=== PATIENT | male | born 1975 | race Caucasian/White ===

== ENCOUNTER 2021-07-22 10:52 | Observation (INO) | payer OTHER, SELFPAY ==
[2021-07-22] VITALS (9 sets, daily range): BP systolic 132–164; BP diastolic 69–89; PULSE 62–77; RESP 17–18; TEMP 36.3–37.2; O2SAT 98–100
--- NOTE | ~2021-07-22 | XR_ITS ---
EXAM: XR abdomen/kub 1V DATE: 07/22/2021 13:11 HISTORY: nephrolithiasis . COMPARISON: CT abdomen and pelvis, same date. FINDINGS: Clear lung bases. Normal bowel gas pattern. No organomegaly. No abnormal abdominal calcifi cation. Right ureteral stone identified in the prior CT is not radiographically visible. Regional bon es and soft tissues normal for age. IMPRESSION: Previously identified right ureteral stone not visualized. Reviewed, dictated and finalized at location K.
--- NOTE | ~2021-07-22 | CT_ITS ---
EXAMINATION: CT abdomen pelvis wo con DATE: 07/22/2021 12:00 INDICATION: Right flank pain. Nausea and vomiting. TECHNIQUE: Computed tomography (CT) of the abdomen and pelvis was performed without intravenous contr ast. The dose-length product was 414.75 mGy-cm. Automated exposure control and iterative reconstruction technique were employed. COMPARISON: None. FINDINGS: Lung bases are unremarkable. Heart size normal. No significant pleural or pericardial effus ion. There is a 4 mm proximal right ureteral stone with mild hydronephrosis. No renal stones. The liver, spleen, pancreas, adrenal glands are unremarkable. Gallbladder is present. Small fat-conta ining umbilical hernia. Nonobstructive bowel gas pattern. Small hiatal hernia. No free air or free fl uid. Nonobstructive bowel gas pattern. No acute osseous abnormality. IMPRESSION: 1. Proximal right ureteral stone measuring 4 mm with mild hydronephrosis. Reviewed, dictated and finalized at location A.
--- NOTE | ~2021-07-22 | XR_ITS ---
XR abdomen/kub 1V DATE: 07/23/2021 05:53 INDICATION: Flank pain TECHNIQUE: AP rejection COMPARISON: 07/22/[address] abdomen pelvis FINDINGS: Faint approximately 4 mm calcific density overlying right EE proximal ureter at upper L4 le david, corresponding to the right ureteral calculus at this location noted on 07/22/2021 CT abdomen pelv is examination. No other urinary tract calcification. The psoas shadows appear intact. No visceromegaly is noted. No evidence of bowel obstruction. IMPRESSION: 4 mm proximal right ureteral calculus at upper L4 level Reviewed, dictated and finalized at Location A. Reviewed, dictated and finalized at location A.
--- NOTE | ~2021-07-22 | XR_ITS ---
EXAMINATION: XR chest 1V portable DATE: 07/23/2021 07:25 INDICATION: Chest pain TECHNIQUE: frontal view of the chest was obtained. COMPARISON: None FINDINGS: The lungs are clear with no focal airspace opacities, pulmonary edema, pleural effusion or pneumothor ax. The cardiomediastinal silhouette is normal. Mild thoracic dextrocurvature with mild spondylosis. IMPRESSION: 1. No acute cardiopulmonary disease. Reviewed, dictated and finalized at location A.
[2021-07-22 11:16] LABS: Basophils Absolute Auto 0.1 K/mm3 (0.0-0.1); Basophils Percent Auto 1.1 % (0.2-1.2); Eosinophils Absolute Auto 0.1 K/mm3 (0-0.3); Eosinophils Percent Auto 1.6 % (0-4.4); Hematocrit 45.4 % (42.0-52.0); Hemoglobin 15.1 g/dL (14.0-18.0); Immature Granulocyte Absolute 0.03 K/mm3 (0.00-0.031); Immature Granulocyte Percent A 0.4 % (0-0.5); Lymphocytes Absolute Auto 3.03 K/mm3 (0.9-3.2); Lymphocytes Percent Auto 36.7 % (18.3-44.2); Mean Corpuscular HGB Conc 33.3 g/dl (32-36); Mean Corpuscular Hemoglobin 31.9 pg (26-34); Mean Platelet Volume 9.2 fl (7.4-10.4); Monocytes Absolute Auto 0.8 K/mm3 (0.1-0.6); Monocytes Percent Auto 9.8 % (2.6-8.5); Neutrophils Absolute Auto 4.2 K/mm3 (1.3-6.7); Neutrophils Percent Auto 50.4 % (45.5-73.1); Platelet Count Result 315 k/mm3 (150-375); Red Blood Count 4.73 M/mm3 (4.6-6.20); Red Cell Distribution Width 12.3 % (11.5-14.5); White Blood Count 8.3 K/mm3 (4.5-10.0)
[2021-07-22] MEDS: MORPHINE SULFATE (*CRX) 4 MG/ML INJ IV PUSH ×3 (11:19→19:28)
[2021-07-22] MEDS: ONDANSETRON INJ 4 MG/2 ML VIAL IV PUSH ×2 (11:19→16:38)
[2021-07-22 11:25] LABS: Alanine Aminotransferase 27 U/L (6-50); Albumin Level 4.6 g/dL (3.5-5.1); Alkaline Phosphatase 59 U/L (38-126); Anion Gap 9 mmol/L (8-16); Aspartate Amino Transferase 32 U/L (17-59); Bilirubin,Total 0.9 mg/dL (0.2-1.3); Blood Urea Nitrogen 17 mg/dL (9-20); Calcium 8.8 mg/dL (8.4-10.2); Carbon Dioxide 27 mmol/L (22-30); Chloride 103 mmol/L (98-107); Estimated CRCL calculation 96 ml/min; Estimated Glomerular Filt Rate > 60; Glucose 129 mg/dL (65-110); Potassium 3.4 mmol/L (3.4-5.0); Sodium 139 mmol/L (137-145)
[2021-07-22 11:31] LABS: Appearance Urine Clear (Clear); Bilirubin Urine 1+ (Negative); Blood Urine 3+ (Negative); Color Urine Yellow (Yellow); Glucose Urine UA Negative (Negative); Ketones Urine Negative (Negative); Leukocyte Esterase Ur Negative LEU/UL (Negative); Nitrate Urine Negative (Negative); Protein Urine 1+ mg/dL (Negative)
[2021-07-22 11:40] LABS: Budding Yeast Urine Present /hpf; Mucus Urine Rare /lpf; WBC Urine 0-3 /hpf
[2021-07-22 11:41] LABS: Add Urine Microscopic? YES
[2021-07-22] MEDS: SODIUM CHLORIDE 0.9% IV 1,000 ML 999 ML IV CONT (12:36)
--- NOTE | 2021-07-22 12:47 | ED.BACK ---
HPI - Back Pain/Injury General Chief Complaint: Back Pain/Injury Stated Complaint: Right Flank Pain Time Seen by Provider: 07/22/21 11:07 History of Present Illness HPI Narrative: Patient is a 45-year-old male here for evaluation of right today. Patient states he was at [employer] when he suddenly developed severe flank pain that is stabbing in nature. The pain is an intermittent in nature, radiates around to his right groin. He began to vomit earlier today, which prompted his emergency department evaluation. He denies any medications prior to arrival. Denies fevers, chills, dysuria, hematuria, history of previous. No history of kidney stones. Related Data Home Medications Medication Instructions Recorded Confirmed No Home Medications 07/22/21 07/22/21 Allergies Allergy/AdvReac Type Severity Reaction Status Date / Time cat dander Allergy Unknown Unknown Verified 07/22/21 14:59 Review of Systems Review of Systems: Gen.: Denies fevers or chills Eyes: Denies eye pain or visual change ENT: Denies congestion Respiratory: Denies shortness of breath or cough CV: Denies chest pain or palpitations GI: Reports nausea and vomiting. Denies diarrhea denies burning, urgency, frequency or hematuria Musculoskeletal: Reports back pain Neuro: Denies numbness, tingling, weakness or focal weakness Skin: Denies rash Except as documented, all other systems reviewed and negative FORMERLY [facility], [facility] Past Medical History Medical History Bulging disc Surgical History Surgical History History of lumbosacral spine surgery Family History Family History (Updated 07/22/21 @ 15:08 by Rufina Gilbert RN) Father Family history of cardiovascular disease Family history of elevated blood lipids Mother Family history of cardiovascular disease Family history of elevated blood lipids Family history of mental disorder Sibling Family history of elevated blood lipids Social History Social History Smoking status: Never smoker Alcohol intake: current Drinks per week: 14 Substance use: never Substance use type: does not use Spiritual care concerns: No Exam Narrative: APPEARANCE: uncomfortable appearing EYES: EOMI HEENT: Normocephalic, atraumatic, OMM RESPIRATORY: No respiratory distress. Clear to auscultation bilaterally with no rhonchi wheezing or rales. CARDIOVASCULAR: Regular rate and rhythm without murmurs rubs or gallops. ABDOMINAL: Soft, nontender, nondistended, no rebound or guarding MUSCULOSKELETAL: No CVA tenderness. Moves all extremities. No clubbing, cyanosis or edema. NEURO: Awake and alert. Following commands, speech normal, no focal deficits SKIN: Warm, dry. No rashes lesions or abrasions PSYCHIATRIC: Normal affect/mood Course Vital Signs Vital signs: Vital Signs Temperature 97.6 F 07/22/21 10:56 Pulse Rate 69 07/22/21 10:56 Respiratory Rate 18 07/22/21 10:56 Blood Pressure 153/69 H 07/22/21 10:56 Pulse Oximetry 100 07/22/21 10:56 Oxygen Delivery Room Air 07/22/21 10:56 Temperature 97.3 F L 07/22/21 15:04 Pulse Rate 77 07/22/21 15:04 Respiratory Rate 18 07/22/21 15:04 Blood Pressure 164/88 H 07/22/21 15:04 Pulse Oximetry 99 07/22/21 15:04 Oxygen Delivery Room Air 07/22/21 17:39 MDM - Back Pain/Injury MDM Narrative Medical decision making narrative: 45-year-old male here for evaluation of flank pain nausea and vomiting today. Patient hypertensive, likely due to pain, vital signs otherwise normal. No abdominal tenderness on exam. Work-up significant for blood in urine, normal kidney function, and a 4 mm right proximal ureteral stone causing mild obstructive pathology. Patient's pain not well controlled after 8 of morphine in the ED, still vomiting after Zofran. Discussed case with urol
--- NOTE | 2021-07-22 14:07 | PM.IMHP ---
H&P: HPI History of Present Illness Date/Time: Patient was placed observation status for expected length of stay less than 23 hours for management, will plan to re-evaluate tomorrow for improvement. 07/22/21 14:07 Chief Complaint: Back pain Narrative: Mr. Grove is a 45-year-old gentleman who presented emergency room with complaints of intense right back pain. Patient states that on Friday or Friday earlier this week he had worked down and he thought he ?tweaked? his back. Patient states that he was resting his back and over the weekend had improved until today. Patient states he was at [employer] and got out of car and had intense right flank pain. Patient states he became very nauseated diaphoretic at that time on his told him to sit in a car with air conditioning to see if his symptoms improve. Patient states that his symptoms did not improve and they decided to go home. Patient states that once he was home he continued to feel very nauseated and he continued to have intense pain and decided to come the emergency room for further evaluation. Patient denies any dysuria, hematuria, frequency, or urgency. Patient states that he did feel like he had to urinate earlier in the emergency room, but was unable to do so. Patient states that when he was having his right flank pain that it at times it did radiate to the groin. Patient states while he was being brought to the emergency room he did vomit multiple times. Patient denies any fever or chills. Patient states he does have a history of a bulging disc in his L-spine and he underwent surgery for this and has had no issues since that time. Upon evaluation in emergency room patient underwent CT scan that did show proximal right ureteral stone measuring 4 mm with mild hydronephrosis. Patient denies any history of renal calculi. Patient did receive a total of 8 mg of morphine in the emergency room the family did help with pain. Patient denies any past medical history and states the only medication he takes at home is a multivitamin and vitamin D 3. Review of Systems Review of Systems: A 12 point review of systems was completed patient all pertinent positive and negative per HPI the remainder are unremarkable. [facility] Past Medical History Medical History (Updated 07/22/21 @ 14:11 by Kamla Sandoval APRN) Bulging disc Surgical History Surgical History (Updated 07/22/21 @ 14:10 by Kamla Sandoval APRN) History of lumbosacral spine surgery Family History Family History Other Family history of cardiovascular disease Family history of elevated blood lipids Family history of mental disorder Social History Social History Smoking status: Never smoker Alcohol intake: current Meds Home Medications and Allergies Home Medications Medication Instructions Recorded Confirmed Type No Home Medications 07/22/21 07/22/21 History Allergies Allergy/AdvReac Type Severity Reaction Status Date / Time cat dander Allergy Unknown Unknown Verified 07/22/21 11:21 Vital Signs Vital Signs - 24 hr 07/22/21 10:56 07/22/21 12:05 07/22/21 12:07 Temperature 36.4 C Pulse Rate 69 66 62 Respiratory Rate 18 Blood Pressure 153/69 H 143/89 H 134/87 Pulse Oximetry 100 Oxygen Delivery Room Air 07/22/21 12:07 07/22/21 12:34 Temperature Pulse Rate 64 64 Respiratory Rate 18 Blood Pressure 137/83 137/74 Pulse Oximetry 100 Oxygen Delivery Exam Narrative: Constitutional: Patient is well-nourished in no acute distress. Patient is alert and oriented x3 HEENT: Moist mucous membranes. No scleral icterus. No lymphadenopathy. Neck: No carotid bruits noted no JVD noted Lungs: Lung sounds are clear to auscultation bilaterally. No accessory muscle use. No rhonchi, rales, or wheezes noted. Cardiovascular: Apical pulse is regular rate and
[2021-07-22] MEDS: HYDROcodone/acetaminophen (*CRX) 5-325 MG TABLET 1 TAB PO ×2 (14:41→20:46)
--- NOTE | 2021-07-22 15:02 | ADMGEN ---
This patient, Kaiden Grove, was admitted to 2 Medical Room 240-01. Patient/family oriented to hospital policies and general routines including ID bracelet, bed and alarms, visiting hours, pain management, procedures, bathroom and other care routines, personal items, smoking policy, room service/diet, and visiting hours. Information on how to activate the Rapid Response Team has been discussed. Patient/Family are encouraged to report perceived risks to care and to ask questions if they do not understand what they are told or what they should do. Report received from SANGITA Gonzalez.
[2021-07-22] MEDS: SODIUM CHLORIDE 0.9% IV 1,000 ML 125 ML IV CONT ×2 (16:37→23:34)
[2021-07-23] MEDS: ONDANSETRON INJ 4 MG/2 ML VIAL IV PUSH ×2 (00:05→07:36)
[2021-07-23] MEDS: HYDROcodone/acetaminophen (*CRX) 5-325 MG TABLET 1 TAB PO ×4 (01:11→14:00)
[2021-07-23 04:15] VITALS: BP 127/73; PULSE 57; RESP 17; TEMP 36.6; O2SAT 99
[2021-07-23 05:46] LABS: Basophils Percent Auto 0.5 % (0.2-1.2); Eosinophils Percent Auto 0.3 % (0-4.4); Hematocrit 37.8 % (42.0-52.0); Hemoglobin 12.5 g/dL (14.0-18.0); Immature Granulocyte Absolute 0.03 K/mm3 (0.00-0.031); Immature Granulocyte Percent A 0.3 % (0-0.5); Lymphocytes Absolute Auto 1.26 K/mm3 (0.9-3.2); Lymphocytes Percent Auto 14.4 % (18.3-44.2); Mean Corpuscular HGB Conc 33.1 g/dl (32-36); Mean Corpuscular Hemoglobin 31.8 pg (26-34); Mean Corpuscular Volume 96.2 fl (80-100); Mean Platelet Volume 9.6 fl (7.4-10.4); Monocytes Absolute Auto 0.8 K/mm3 (0.1-0.6); Monocytes Percent Auto 9.6 % (2.6-8.5); Neutrophils Absolute Auto 6.6 K/mm3 (1.3-6.7); Neutrophils Percent Auto 74.9 % (45.5-73.1); Platelet Count Result 199 k/mm3 (150-375); Red Blood Count 3.93 M/mm3 (4.6-6.20); Red Cell Distribution Width 12.5 % (11.5-14.5); White Blood Count 8.8 K/mm3 (4.5-10.0)
[2021-07-23 05:57] LABS: Anion Gap 3 mmol/L (8-16); Blood Urea Nitrogen 17 mg/dL (9-20); Calcium 8.1 mg/dL (8.4-10.2); Carbon Dioxide 26 mmol/L (22-30); Chloride 106 mmol/L (98-107); Estimated CRCL calculation 59 ml/min; Estimated Glomerular Filt Rate 51; Glucose 98 mg/dL (65-110); Potassium 3.8 mmol/L (3.4-5.0); Sodium 135 mmol/L (137-145)
--- NOTE | 2021-07-23 06:37 | ECG_ITS ---
Measurements Intervals [place] Rate: 54 P: 73 UT: 169 QRS: 42 QRSD: 100 T: 32 QT: 401 QTc: 382 Interpretive Statements SINUS BRADYCARDIA OTHERWISE NORMAL NO PREVIOUS ECG AVAILABLE FOR COMPARISON Electronically Signed On 07-23-2021 15:30:14 CDT by Yong Banks M.D.
--- NOTE | 2021-07-23 06:37 | PM.IMPN ---
Progress Note: A&P Assessment and Plan (1) Chest pain: Code(s): R07.9 - Chest pain, unspecified Status: Acute Assessment and Plan: Patient reports new chest pain radiating to the left side of the neck this morning. He denies diaphoresis, lower extremity swelling and pain, shortness of breath. He has no cardiac history, but does have a family history of heart disease. He had COVID approximately 1 month ago; he is fully vaccinated. CXR Serial troponin EKG (2) Right renal stone: Code(s): N20.0 - Calculus of kidney Status: Acute Assessment and Plan: CT scan of the abdomen pelvis shows proximal right ureteral stone measuring 4 mm with mild hydronephrosis. Patient's urinalysis does not show any Leuk esterase, wbc's, or nitrates. At this point time will continue hydration with IV fluids and keep patient NPO after midnight. Urology has been consult and appreciate further recommendations. He continues to produce urine. His pain is coming under control with a combination of norco and IV tylenol. We will strain all urine to monitor for renal calculi. Pain and nausea control. Cr up today to 1.5. Will continue IV fluid rehydration. Subjective Date/time seen: 07/23/21 06:37 Interval history: 45-year-old male with past medical history bulging disc who presents to us for acute onset of right sided back and groin pain accompanied by nausea and vomiting. He reports he started taking Vitamin D at the beginning of covid pandemic, but has no history of kidney stones. He reports the pain is much better today at a 5/10. He continues to produce urine, though it is darker than normal. He has not seen any stones or blood in his urine. He reports he had covid 1 month ago. He states he has been having some left sided chest pain that radiates to the neck. This is occurring at rest and comes and goes. He denies diaphoresis. He wonders if it could be from dehydration or vomiting, but is also concerned because he believes his mother passed in December from a heart attack. We will evaluate him for this as well. He tried some jello yesterday evening and it did not sit well. He is currently NPO awaiting urology evaluation. Review of Systems Review of Systems: All systems reviewed & are unremarkable except as noted in HPI and below Exam Narrative: GENERAL APPEARANCE: Alert and oriented x 3, healthy male, in no apparent distress. HEENT: PERRL, EOMI. Sclerae anicteric. Moist mucous membranes. NECK: Supple. No JVD or obvious carotid bruits. RESPIRATORY: Respirations are nonlabored. Breath sounds are equal and clear bilaterally. No wheezes, Rhonchi, or rales. CARDIOVASCULAR: Regular rate and rhythm with normal S1-S2. No murmurs, gallops, or rubs. GASTROINTESTINAL: Soft, flat, and benign. No mass, guarding, or rebound. No organomegaly or hernia. Bowel sounds are present. right CVA tenderness is present. : Urine is present in the urinal. It is dark yellow. SKIN: Warm, dry, well perfused. Good turgor. No lesions, nodules, or rashes noted. EXTREMITIES: No cyanosis, clubbing, or edema. Radial and pedal pulses intact. NEUROLOGICAL: Alert. Cranial nerves 2-12 are grossly intact. No gross focal deficits to casual conversation. PSYCHIATRIC: Pleasant and cooperative with normal mood and affect. Objective Data Vital Signs Vital Signs: Vital Signs - 24 hr 07/22/21 10:56 07/22/21 12:05 07/22/21 12:07 Temperature 97.6 F Pulse Rate 69 66 62 Respiratory Rate 18 Blood Pressure 153/69 H 143/89 H 134/87 Pulse Oximetry 100 Oxygen Delivery Room Air 07/22/21 12:07 07/22/21 12:34 07/22/21 14:42 Temperature Pulse Rate 64 64 69 Respiratory Rate 18 18 Blood Pressure 137/83 137/74 135/79 Pulse Oximetry 100 100 Oxygen Delivery 07/22/21 14:19 07/22/21 15:04 07/22/21 17:39 Temperature 97.3 F L Pulse Rate 77 Respiratory Rate 18 Blood Pressure 164/88 H Pulse Ox
[2021-07-23 07:19] LABS: Troponin I 0.019 ng/mL (0.000-0.034)
--- NOTE | 2021-07-23 08:38 | WPDURCON ---
Assessment and Plan Assessment and plan (1) Calculus of proximal right ureter: Code(s): N20.1 - Calculus of ureter Status: Acute Assessment and Plan: he can be discharged home today. Please provide him with pain medication. Our office will call and arrange for lithotripsy tomorrow. Understands risks of bleeding, infection, damage to the urinary tract, bleeding from the kidney. He understands the stone moves down to his distal ureter we may do ureteroscopy instead. I did offer him a trial of conservative stone passage. I did offer ureteroscopy tomorrow. He is going on vacation on Friday and would like the stone taking care of expeditiously and would like to avoid ureteral stent (2) Hydronephrosis: Code(s): N13.30 - Unspecified hydronephrosis Status: Acute Assessment and Plan: due to stone Urology Consult Note HPI Date Seen: 07/23/21 Requesting Physician: Tamara Gracia PA-C Primary Care Provider: Yong Lee MD Consult Narrative Narrative: Kaiden Grove is a 45 year old male With no prior history of stone disease. He was admitted yesterday for acute onset of right flank pain. He had nausea vomiting. He had no gross hematuria. He had no fevers or chills. He had no symptoms of urinary tract infection. he underwent a CT scan showing a 4 mm proximal to mid ureteral stone. With hydronephrosis proximal to the stone. The stone is visible on KUB. He is admitted overnight. He has not had any pain episodes in several hours. His nausea is controlled. He has been taking some Tylenol with codeine. I offered him 3 options. 1 was a trial of conservative stone passage. Another option was ureteroscopy tomorrow. Other option was lithotripsy tomorrow. Unfortunately lithotripsy machine is not at this facility tomorrow and will have to do somewhere else. He would like to be discharged home and have outpatient lithotripsy tomorrow. He last took Motrin several days ago. Otherwise he is not on any blood thinners. His urinalysis negative for infection Review of Systems Review of Systems: review of systems negative other than history of present illness PMFSH Past Medical History Medical History Bulging disc Surgical History Surgical History History of lumbosacral spine surgery Family History Family History Father Family history of cardiovascular disease Family history of elevated blood lipids Mother Family history of cardiovascular disease Family history of elevated blood lipids Family history of mental disorder Sibling Family history of elevated blood lipids Social History Social History Smoking status: Never smoker Alcohol intake: current Drinks per week: 14 Substance use: never Substance use type: does not use Spiritual care concerns: No Meds Home Medications and Allergies Home Medications Medication Instructions Recorded Confirmed Type No Home Medications 07/22/21 07/22/21 History Allergies Allergy/AdvReac Type Severity Reaction Status Date / Time cat dander Allergy Unknown Unknown Verified 07/22/21 14:59 Vital Signs Vital Signs - 24 hr 07/22/21 10:56 07/22/21 12:05 07/22/21 12:07 Temperature 97.6 F Pulse Rate 69 66 62 Respiratory Rate 18 Blood Pressure 153/69 H 143/89 H 134/87 Pulse Oximetry 100 Oxygen Delivery Room Air 07/22/21 12:07 07/22/21 12:34 07/22/21 14:42 Temperature Pulse Rate 64 64 69 Respiratory Rate 18 18 Blood Pressure 137/83 137/74 135/79 Pulse Oximetry 100 100 Oxygen Delivery 07/22/21 14:19 07/22/21 15:04 07/22/21 17:39 Temperature 97.3 F L Pulse Rate 77 Respiratory Rate 18 Blood Pressure 164/88 H Pulse Oximetry 98 99 Oxygen
[2021-07-23] MEDS: SODIUM CHLORIDE 0.9% IV 1,000 ML 125 ML IV CONT (09:03)
--- NOTE | 2021-07-23 09:59 | PM.DS ---
DS: Admitting Diagnosis Discharge Date 07/23/21 1600 Admitting Diagnosis Renal Stone DS: Discharge Diagnosis Discharge Diagnosis (1) Chest pain: Code(s): R07.9 - Chest pain, unspecified Status: Acute Assessment and Plan: Patient reports new chest pain radiating to the left side of the neck this morning. He denies diaphoresis, lower extremity swelling and pain, shortness of breath. He has no cardiac history, but does have a family history of heart disease. He had COVID approximately 1 month ago; he is fully vaccinated. On prophylactic Lovenox. CXR showed no acute cardiopulmonary abnormality Serial troponins were normal. EKG showed normal sinus rhythm (2) Right renal stone: Code(s): N20.0 - Calculus of kidney Status: Acute Assessment and Plan: CT scan of the abdomen pelvis shows proximal right ureteral stone measuring 4 mm with mild hydronephrosis. Repeat KUB this morning showed a 4 mm proximal right ureter dural calculus at the upper L4 level. Patient's urinalysis does not show any Leuk esterase, wbc's, or nitrates. He continues to produce urine. His pain is under control with a combination of norco and IV tylenol. We will strain all urine to monitor for renal calculi. Urology has been consult and advised that patient is okay to discharge with follow-up in the office tomorrow for lithotripsy. They request we provide pain control for the time being, which we will discharge the patient with. Velva/ Tylenol/ Zofran for pain/ nausea control. Cr slightly elevated today. Urology has seen the patient and advised he is safe to d/c to home with OP follow up tomorrow. Will encourage good oral rehydration. DS: Summary Hospital Course Reason for hospitalization: Right kidney stone Hospital Course: See above for full hospital course Status at Discharge Cognitive/behavioral status at discharge: Progressing to baseline Time Spent with Patient Time attestation: Total time spent providing and/or coordinating discharge services: 35 minutes Exam Narrative: GENERAL APPEARANCE: Alert and oriented x 3, healthy male, in no apparent distress. HEENT: PERRL, EOMI. Sclerae anicteric. Moist mucous membranes. NECK: Supple. No JVD or obvious carotid bruits. RESPIRATORY: Respirations are nonlabored. Breath sounds are equal and clear bilaterally. No wheezes, Rhonchi, or rales. CARDIOVASCULAR: Regular rate and rhythm with normal S1-S2. No murmurs, gallops, or rubs. GASTROINTESTINAL: Soft, flat, and benign. No mass, guarding, or rebound. No organomegaly or hernia. Bowel sounds are present. Mild right CVA tenderness is present. : Urine is present in the urinal. It is dark yellow. SKIN: Warm, dry, well perfused. Good turgor. No lesions, nodules, or rashes noted. EXTREMITIES: No cyanosis, clubbing, or edema. Radial and pedal pulses intact. NEUROLOGICAL: Alert. Cranial nerves 2-12 are grossly intact. No gross focal deficits to casual conversation. PSYCHIATRIC: Pleasant and cooperative with normal mood and affect. DS: Data Data Completed and Pending Labs on day of discharge: Labs from last 24 hours 07/23/21 07/23/21 07/23/21 09:37 05:02 05:02 WBC 8.8 RBC 3.93 L Hgb 12.5 L Hct 37.8 L MCV 96.2 MCH 31.8 MCHC 33.1 RDW 12.5 Plt Count 199 MPV 9.6 Immature Gran % (Auto) 0.3 Neut % (Auto) 74.9 H Lymph % (Auto) 14.4 L [place] % (Auto) 9.6 H Eos % (Auto) 0.3 Baso % (Auto) 0.5 Lymph # (Auto) 1.26 [place] # (Auto) 0.8 H Eos # (Auto) 0.0 Baso # (Auto) 0.0 Abs Immat Gran (auto) 0.03 Absolute Neuts (auto) 6.6 Absolute Nucleated RBC 0.0 Nucleated RBC % 0.0 Sodium 135 L Potassium 3.8 Chloride 106 Carbon Dioxide 26 Anion Gap 3 L BUN 17 Creatinine 1.50 H Estim Creat Clear Calc 59 Estimated GFR 51 L Glucose 98 Calcium 8.1 L Total Bilirubin AST ALT A
[2021-07-23 10:06] LABS: Troponin I < 0.012 ng/mL (0.000-0.034)
[2021-07-23 10:40] LABS: Cholesterol 190 mg/dL (0-200); HDL Direct 55 mg/dL; Triglycerides 116 mg/dL (<150)
[2021-07-23 10:51] LABS: LDL Cholesterol Direct 93 mg/dL
[2021-07-23 14:15] VITALS: BP 134/86; PULSE 51; RESP 16; TEMP 37.4; O2SAT 100
== END 2021-07-23 17:33 | disposition home or self-care (01) ==
LOC: ANHED 11:17 → ANH2MED 18:01
PROVIDERS: Nurse Practitioner Adult Health; Admitting Provider Internal Medicine; Emergency Provider General Practice; PCP Family Medicine; Visit Provider Student in an Organized Health Care Education/Training Program
DX: N13.2 Hydronephrosis with renal and ureteral calculous obstruction (principal); R07.9 Chest pain, unspecified
CPT/HCPCS: 36415; 71045; 74018; 74176; 80048; 80053; 80061; 81001; 84484; 85025; 93005; 96361; 96374; 96375; 96376; 99285; A9270; G0378; J0131; J2270; J2405; J7030

== ENCOUNTER → 2021-09-07 13:47 | Outpatient (CLI) | payer OTHER, SELFPAY ==
--- NOTE | ~2021-09-07 | US_ITS ---
US retroperitoneal comp 09/07/2021 14:50 Procedure: Realtime transabdominal ultrasound of the kidneys and bladder. Indication: Recent kidney stone Comparison: KUB dated 07/23 and 09/07/2021 Findings: Renal echotexture is normal bilaterally without hydronephrosis, contour deforming mass or r enal calculus. The right kidney measures 11.6 cm and left kidney measures 9.5 cm. Bladder within nor mal limits. Impression: 1: Unremarkable renal ultrasound. No stones, masses or hydronephrosis. Reviewed, dictated and finalized at location A. Impression: 1: Unremarkable renal ultrasound. No stones, masses or hydronephrosis.
--- NOTE | ~2021-09-07 | XR_ITS ---
XR abdomen/kub 1V 09/07/2021 14:30 INDICATION: Renal stones TECHNIQUE: KUB COMPARISON: None FINDINGS: Bowel gas pattern is normal. There is no evidence of free air, mass, organomegaly, ascites or obstruction. No abnormal calculi are seen. The bones appear intact. IMPRESSION: 1: No acute abdominal abnormality identified. Reviewed, dictated and finalized at location A.
== END ==
PROVIDERS: PCP Family Medicine; Visit Provider Urology
DX: Z87.442 Personal history of urinary calculi (principal)
CPT/HCPCS: 74018; 76770

== ENCOUNTER 2021-12-07 11:12 | Outpatient (CLI) | payer OTHER, SELFPAY ==
[2021-12-07 19:48] LABS: Alanine Aminotransferase 30 U/L (6-50); Albumin Level 4.6 g/dL (3.5-5.1); Alkaline Phosphatase 53 U/L (38-126); Anion Gap 12 mmol/L (8-16); Aspartate Amino Transferase 35 U/L (17-59); Bilirubin,Total 1.5 mg/dL (0.2-1.3); Blood Urea Nitrogen 17 mg/dL (9-20); Calcium 9.3 mg/dL (8.4-10.2); Carbon Dioxide 28 mmol/L (22-30); Chloride 100 mmol/L (98-107); Estimated Glomerular Filt Rate > 60; Glucose 89 mg/dL (65-110); Potassium 4.2 mmol/L (3.4-5.0); Sodium 140 mmol/L (137-145)
== END 2021-12-07 11:13 | disposition home or self-care (01) ==
LOC: ANHGOSHLAB 11:16
PROVIDERS: PCP Family Medicine; Visit Provider Family Medicine
DX: N28.9 Disorder of kidney and ureter, unspecified (principal)
CPT/HCPCS: 36415; 80053

== ENCOUNTER 2023-11-24 07:30 | Day surgery (SDC) | payer OTHER, SELFPAY ==
--- NOTE | 2023-11-24 06:51 | P.PNAN_ITS ---
Anes - Initial Pre Proc Eval Procedure: Operation Date: 11/24/23 09:00 Proposed Procedures p Screening Colonoscopy - Anil Pittman DO Date/Time: 11/24/23 06:51 Surgeon: Anil Pittman DO Pre Op Diagnosis: Neoplasm Screening Patient Data Age: 48 Gender: M Height: 1.78 m Weight: 81.193 kg Allergies Allergy/AdvReac Type Severity Reaction Status Date / Time No Known Drug Allergies Allergy Mild N/A Verified 11/24/23 07:54 cat dander Allergy Unknown Nasal Verified 11/24/23 07:54 Discharge Home Medications Medication Instructions Recorded Confirmed Type No Home Medications 10/17/23 11/24/23 History Patient hx anesthesia problems: none Family hx anesthesia problems: none Results Review: All pre-operative results and documents have been reviewed as part of the pre- operative evaluation. [facility] Past Medical History Medical History Bulging disc Hydronephrosis Intermittent heterotropia Left inguinal hernia Nephrolithiasis Pure hypercholesterolemia RLL pneumonia Ureteral stone Surgical History Surgical History History of lumbosacral spine surgery Family History Family History Father Family history of cardiovascular disease Family history of elevated blood lipids Mother Family history of cardiovascular disease Family history of elevated blood lipids Family history of mental disorder Sibling Family history of elevated blood lipids Social History Social History Smoking status: Never smoker Alcohol intake: current Drinks per week: 14 Alcohol use details: 7-10. Pt states about one per day Substance use: never Substance use type: does not use Lack of Transportation: YES Lack of Food: Never True Current Housing: I Have Housing Concerned About Future Housing: No Difficulty Paying Gas/Electric Bills: No Difficulty Paying for Meds: No Currently Unemployed: No Education: Master's Degree or Higher Living arrangements: with family Spiritual care concerns: No Anes - Eval Final PreProcedure Day of Procedure 11/24/23 06:51 Patient weight: overweight Heart: regular rate and rhythm Lungs: clear to auscultation Airway: Mallampati scale class II Neurological: alert and oriented Last oral intake: >/= 8 hours ASA classification: II Emergent: no Anesthetic plan: proceed Anesthesia type and monitoring: general GIVS and standard monitoring Results Review: All pre-operative results and documents have been reviewed as part of the pre- operative evaluation. Informed Consent: The patient's anesthetic plan and its attendant risks and benefits were discussed with the patient/family/POA. Questions were solicited and answers provided to the satisfaction of the patient/family/POA.
[2023-11-24 08:04] VITALS: BP 132/73; PULSE 56; RESP 18; TEMP 36.9; O2SAT 100; BMI 25.0
[2023-11-24] MEDS: LACTATED RINGERS 1,000 ML 150 ML IV CONT (08:23)
--- NOTE | 2023-11-24 09:22 | PM.IMHP ---
H&P: HPI History of Present Illness Date/Time: 11/24/23 09:22 Chief Complaint: Screening for colon cancer Narrative: 48 yo man presents for colonoscopy. Denies fam hx colon cancer. Denies hematochezia/melena. Review of Systems Review of Systems: All systems reviewed & are unremarkable except as noted in HPI and below Constitutional: Constitutional: Denies chills, Denies fever(s), Denies headache(s) and Denies weight loss Eyes: Eyes: Denies change in vision ENT: Denies dizziness, Denies headache(s), Denies neck mass and Denies throat swelling Cardiovascular: Cardiovascular: Denies chest pain, Denies lightheadedness and Denies dyspnea Respiratory: Respiratory: Denies cough, Denies dyspnea and Denies wheezing Gastrointestinal: Gastrointestinal: Denies abdominal pain, Denies change in bowel habits, Denies nausea and Denies vomiting Genitourinary: Genitourinary: Denies hematuria and Denies dysuria Musculoskeletal: Musculoskeletal: Reports as per HPI Integumentary/Breasts: Skin/Breast: Reports as per HPI Neurologic: Denies dizziness and Denies headache(s) Allergic/Immunologic: Allergic/Immunologic: Denies throat swelling and Denies wheezing PMFSH Past Medical History Medical History Bulging disc Hydronephrosis Intermittent heterotropia Left inguinal hernia Nephrolithiasis Pure hypercholesterolemia RLL pneumonia Ureteral stone Surgical History Surgical History History of lumbosacral spine surgery Family History Family History Father Family history of cardiovascular disease Family history of elevated blood lipids Mother Family history of cardiovascular disease Family history of elevated blood lipids Family history of mental disorder Sibling Family history of elevated blood lipids Social History Social History Smoking status: Never smoker Alcohol intake: current Drinks per week: 14 Alcohol use details: 7-10. Pt states about one per day Substance use: never Substance use type: does not use Lack of Transportation: YES Lack of Food: Never True Current Housing: I Have Housing Concerned About Future Housing: No Difficulty Paying Gas/Electric Bills: No Difficulty Paying for Meds: No Currently Unemployed: No Education: Master's Degree or Higher Living arrangements: with family Spiritual care concerns: No Meds Home Medications and Allergies Home Medications Medication Instructions Recorded Confirmed Type No Home Medications 10/17/23 11/24/23 History Allergies Allergy/AdvReac Type Severity Reaction Status Date / Time No Known Drug Allergies Allergy Mild N/A Verified 11/24/23 07:54 cat dander Allergy Unknown Nasal Verified 11/24/23 07:54 Discharge Vital Signs Vital Signs - 24 hr 11/24/23 08:04 Temperature 98.4 F Pulse Rate 56 L Respiratory Rate 18 Blood Pressure 132/73 Pulse Oximetry 100 Oxygen Delivery Room Air Exam Const: General: no acute distress and alert Orientation/consciousness: patient oriented x3 HENMT: Head: normocephalic and atraumatic Ears: hearing grossly normal bilaterally Face/Nose/Sinus: Normal nares present Mouth: Yes Normal oral and palatal mucosa present Eyes: Periorbital: periorbital findings normal Sclera: sclerae normal EOM: EOMs intact bilaterally Neck: Neck: normal visual inspection, no lymphadenopathy and trachea midline Chest: Chest palpation & inspection: normal inspection of the chest Resp: Effort & Inspection: normal respiratory effort Auscultation: clear to auscultation bilaterally Cardio: Jugular venous distension: no JVD Rate: regular rate Rhythm: regular rhythm Heart sounds: S1 normal heart sound present and S2 normal heart sound present Peripheral
[2023-11-24 10:01] VITALS: BP 135/90; PULSE 83; RESP 18; O2SAT 99
[2023-11-24 10:11] VITALS: BP 125/91; PULSE 54; RESP 14; O2SAT 100
[2023-11-24 10:21] VITALS: BP 124/84; PULSE 58; RESP 16; O2SAT 100
--- NOTE | 2023-11-24 11:29 | WPDANESPN ---
Anes - Prog Note Post-Op Date/Time: 11/24/23 11:29 Cardiovascular status: normal Respiratory status: normal Airway patency: baseline Mental status: baseline Post-Op hydration status: normal Vital Signs: Last Vital Signs Temp 36.9 C 11/24/23 08:04 Pulse 58 L 11/24/23 10:21 Resp 16 11/24/23 10:21 BP 124/84 11/24/23 10:21 Pulse Ox 100 11/24/23 10:21 O2 Del Method Room Air 11/24/23 10:21 Pain Score (VAS): 0 I/O: Intake & Output 11/23/23 11/24/23 11/24/23 23:59 07:59 15:59 Intake Total 650 Balance 650 Post-procedural complaints: none Patient Feedback: Patient satisfied with anesthetic care. Other Findings: Patient vital signs back to baseline. Patient denies nausea and vomiting. Patient's pain under control. Patient OK for discharge.
== END 2023-11-24 10:50 | disposition home or self-care (01) ==
PROVIDERS: PCP Family Medicine; Visit Provider Surgery
PROC: 0DJD8ZZ Inspection of Lower Intestinal Tract, Via Natural or Artificial Opening Endoscopic (ICD-10-PCS; CPT 45378; principal; 2023-11-24 09:00)
DX: Z12.11 Encounter for screening for malignant neoplasm of colon (principal)
CPT/HCPCS: 45330

== ENCOUNTER 2023-12-08 12:11 | Outpatient (CLI) | payer OTHER, SELFPAY ==
--- NOTE | ~2023-12-08 | XR_ITS ---
EXAMINATION: XR lumbar spine 2-3V DATE: 12/08/2023 12:28 INDICATION: Lumbar with sciatica, right side. TECHNIQUE: 3 views of lumbar spine standing were obtained. COMPARISON: None. FINDINGS: There is 7 degrees dextrocurvature of lumbar spine. Vertebral body heights and intervertebr al disc heights are normal. There are endplate osteophytes at a few levels. There is multilevel mild- to-moderate facet joint osteoarthritis. IMPRESSION: 1. Mild lumbar spondylosis. Reviewed, dictated and finalized at location B. IMPRESSION: 1. Mild lumbar spondylosis.
== END 2023-12-08 12:12 | disposition home or self-care (01) ==
LOC: GOSHIMG 12:12
PROVIDERS: PCP Family Medicine; Visit Provider Nurse Practitioner Family
DX: M54.41 Lumbago with sciatica, right side (principal); M47.896 Other spondylosis, lumbar region
CPT/HCPCS: 72100

== ENCOUNTER 2024-01-06 08:26 | Outpatient (CLI) | payer OTHER, SELFPAY ==
[2024-01-27 13:38] VITALS: BMI 25.1
--- NOTE | 2024-01-27 13:38 | WPDHOMESLEEP ---
Sleep Study - Home Unattended Date of Study: 01/06/24 Ordering Provider: Yong Lee MD Interpreting Provider: Christin Gan, DO Home Sleep Study Type: Watch PAT Height: 1.78 m Weight: 79.379 kg Body Mass Index: 25.1 Neck Circumference (inches): 15.25 [place]: 2 Reason for Sleep Study Snoring Sleep History The patient is a 48-year-old male that had a sleep study ordered by his primary care physician for evaluation of sleep apnea. The patient admits to snoring loudly, interruptions and breathing while asleep and trouble maintaining sleep. The patient admits to choking or gasping at night. He denies having trouble breathing on his back. He denies morning headaches. He admits to having a dry or sore mouth/ throat in the morning. He admits to nocturnal heartburn. He admits to nocturia. He admits to having trouble falling asleep. If he wakes up during the night he does not have difficulty returning to sleep. He denies any hypnotic or sedative use. He denies feeling anxious about sleep. He admits to feeling tired or fatigued during the day. He feels unrefreshed in the morning. He denies having the urge to fall asleep during the day. He denies feeling drowsy while driving. He denies sleep paralysis, cataplexy and hypnagogic / hypnopompic hallucinations. He admits to clenching or grinding his teeth. He denies kicking or jerking his legs excessively. He denies having a restless feeling in his legs. He goes to bed at 10:30 p.m. on work days and at 11:00 p.m. on his days off. It takes him 45 minutes to fall asleep. He gets 7-1/2 hours of sleep on work days and 8 hours 15 minutes of sleep on the other days. His sleep is somewhat restorative on his days off. He denies taking any point naps. He denies dream enactment behavior. He denies sleep walking. He consumes 3-4 cups of caffeinated beverage per day. He denies tobacco use. He consumes 2 glasses 7 alcoholic beverage 3-4 nights per week. He exercises 3-4 nights per week. PMFSH Past Medical History Medical History RLL pneumonia Left inguinal hernia Pure hypercholesterolemia Intermittent heterotropia Ureteral stone Hydronephrosis Nephrolithiasis Bulging disc Surgical History Surgical History History of lumbosacral spine surgery Family History Family History Father Family history of cardiovascular disease Family history of elevated blood lipids Mother Family history of cardiovascular disease Family history of elevated blood lipids Family history of mental disorder Sibling Family history of elevated blood lipids Social History Social History Smoking status: Never smoker Alcohol intake: current Drinks per week: 14 Alcohol use details: 7-10. Pt states about one per day Substance use: never Substance use type: does not use Lack of Transportation: YES Lack of Food: Never True Current Housing: I Have Housing Concerned About Future Housing: No Difficulty Paying Gas/Electric Bills: No Difficulty Paying for Meds: No Currently Unemployed: No Education: Master's Degree or Higher Living arrangements: with family Spiritual care concerns: No Medications Home Medications ?Medication ?Instructions ?Recorded ?Confirmed ?Type cyclobenzaprine 10 mg tablet 10 mg PO TID PRN muscle spasm #30 01/16/24 01/16/24 Rx tabs Sleep Procedure The sleep study was completed using [employer] a technically adequate device with seven channels: peripheral arterial tone, actigraphy, body position, snore, respiratory movement, pulse oximetry, sleep staging, and heart rate. Prior to using the device, the patient received verbal and written instructions for its application and was provided with the help desk phone number for additional telephonic instruction with 24-hour availability of qualified personnel to answer questions. The study was scored using AASM guidelines. Sleep Architecture The total recording time is 9 hrs, 31 min. The total sleep time is 7 hrs, 44 min. Sleep latency is 16 minutes. REM latency is 132 minutes. The patient had 12 episodes of waking. Sleep architecture shows 22.5% deep sleep, 60.0% light sleep, and (as % Total Sleep Time) showed NREM (Light 60.0%; Deep 22.5%), and a 17.5% stage REM. The patient spent 79.3% of total sleep time in the supine position. Sleep efficiency was 81.26. Respiratory Analysis The overall AHI (pAHI 4%:) is 5.3. The central AHI is 0.4. The AHI was 5.2 in NREM and 5.9 in REM sleep. The AHI was 5.7 in Supine and 3.8 in Non-supine sleep. Percent of Quinn Silva respirations is 0.0. Oximetry Data The oxygen desaturation index (JUSTYNA 4%:) is 1.3. The mean saturation is 96%, and the lowest saturation is 89%. Time spent with saturation < 88% is 0.0 minutes. Snoring Profile Snoring average intensity is 42 dB. The patient snored above 45 decibels for 50.9 minutes, 11.0% of sleep time. Cardiac Profile The average pulse rate is 57 beats per minutes. The lowest pulse rate is 44 bpm. The highest pulse rate reported is 93 bpm. Suspected Afib total duration is 0:00:39, (h:m:sec). The longest Afibevent duration is 0:00:39. A suspected arrhythmia flagged in the sleep report does not necessarily imply an arrhythmia condition is present, but rather suggests that further investigation should be considered. A-Fib events < 60 seconds may be artifact. Premature beats occur <0.1 per minute. Assessment and Plan Assessment and Plan (1) SHAYAN (obstructive sleep apnea): Code(s): G47.33 - Obstructive sleep apnea (adult) (pediatric) Status: Acute Assessment and Plan: The patient had an overall AHI of 5.3 with desaturation down to 89%. This is consistent with mild sleep apnea. Due to the patient's insomnia, he qualifies for treatment. I recommend that the patient be prescribed AutoPAP 5-15 cm H2O, CPAP mask/filters/tubing and heated humidity. A mandibular advancement device is an alternative treatment option if the patient is not interested in CPAP. This should be used with all episodes of sleep.? Compliance should be reviewed within 31-90 days of starting therapy for usage greater than 4 hours per night greater than 70% of the nights. The patient should be asked about symptoms such as?excessive daytime sleepiness, quality of sleep, decreased nocturia, increased?mental functioning such as memory, mood, and concentration. Data The data obtained during this sleep study is adequate for interpretation. Certification This sleep study has been reviewed by a board certified sleep medicine physician.
== END 2024-01-07 09:22 | disposition home or self-care (01) ==
LOC: ANHCSM 08:27
PROVIDERS: PCP Family Medicine; Visit Provider Family Medicine
DX: G47.33 Obstructive sleep apnea (adult) (pediatric) (principal); G47.10 Hypersomnia, unspecified
CPT/HCPCS: 95800